=== PATIENT | female | born 1990 | race Caucasian/White ===

== ENCOUNTER 2018-08-21 21:00 | Emergency (ER) | payer OTHER, BC ==
[~2018-08-21] VITALS: Ht 165.1 cm; Wt 54.5 kg
[2018-08-21 21:02] VITALS: BP 142/81; TEMP 97.7
[2018-08-21 22:00] LABS: COLLECTION METHOD CLEAN CATCH
[2018-08-21 22:08] LABS: MUCOUS Present /lpf; PH 5 (5-8); SQUAMOUS EPITHELIAL 0-2 /hpf; URINE APPEARANCE Clear; URINE BACTERIA None Seen /hpf; URINE BILIRUBIN Negative (NEGATIVE); URINE BLOOD Negative (NEGATIVE); URINE COLOR Yellow; URINE GLUCOSE Negative (NEGATIVE); URINE KETONE Negative (NEGATIVE); URINE LEUKOCYTE ESTERASE Negative (NEGATIVE); URINE NITRATE Negative (NEGATIVE); URINE PROTEIN(semi-quant) Negative (NEGATIVE); URINE RBC 0-2 /hpf; URINE UROBILINOGEN Negative (NEGATIVE)
[2018-08-22] MEDS ORDERED: FLEXERIL 1010 MG/TAB PO (00:24)
[2018-08-22 00:33] VITALS: PULSE 79
== END 2018-08-22 00:33 | disposition home or self-care (01) ==
LOC: COL.ER 21:00
PROVIDERS: Nurse Practitioner
DX: S16.1XXA Strain of muscle, fascia and tendon at neck level, initial encounter (principal); S29.012A Strain of muscle and tendon of back wall of thorax, initial encounter; Z90.89 Acquired absence of other organs; Z88.1 Allergy status to other antibiotic agents; V43.52XA Car driver injured in collision with other type car in traffic accident, initial encounter
CPT/HCPCS: J1885

== ENCOUNTER 2018-11-29 19:04 | Emergency (ER) | payer BC ==
[~2018-11-29] VITALS: Ht 289.6 cm; Wt 54.5 kg
[~2018-11-29 19:04] MED LIST: FLEXERIL 1010 MG/TAB PO
[2018-11-29 19:19] VITALS: BP 144/67; TEMP 97.8
[2018-11-29 19:42] LABS: COLLECTION METHOD CLEAN CATCH
[2018-11-29 20:01] LABS: MUCOUS Present /lpf; PH 6 (5-8); URINE APPEARANCE Cloudy; URINE BACTERIA None Seen /hpf; URINE BILIRUBIN Negative (NEGATIVE); URINE BLOOD 3+ (NEGATIVE); URINE COLOR Yellow; URINE GLUCOSE Negative (NEGATIVE); URINE KETONE Negative (NEGATIVE); URINE LEUKOCYTE ESTERASE 3+ (NEGATIVE); URINE NITRATE Negative (NEGATIVE); URINE PROTEIN(semi-quant) 1+ (NEGATIVE); URINE RBC >50 /hpf; URINE UROBILINOGEN Negative (NEGATIVE)
[2018-11-29] MEDS ORDERED: CEFTIN 250250 MG/TAB PO (20:40)
[2018-11-29 20:45] VITALS: PULSE 72
== END 2018-11-29 20:45 | disposition home or self-care (01) ==
LOC: COL.ER 19:04
PROVIDERS: Nurse Practitioner
DX: O23.91 Unspecified genitourinary tract infection in pregnancy, first trimester (principal); Z90.89 Acquired absence of other organs; Z88.1 Allergy status to other antibiotic agents; Z3A.11 11 weeks gestation of pregnancy